=== PATIENT | female | born 1950 | race Caucasian/White ===

== ENCOUNTER → 2017-01-29 | Outpatient (CLI) | payer MEDICARE ==
[~2017-01-29] MED LIST: ASPI-621 PO; ATOR10TA9 PO; BENA20TA2 PO; FLAX1CAP6 PO; HYDR-3245 PO; HYDR12.58 PO; IBUP1TAB11 PO; MELO15TA24 PO; METF850T2 PO; MULT-516 PO; OMEP-110 PO; PARO20TA4 PO; TRAM50TA2 PO; UBID100C19 PO
[2017-01-29 11:51] LABS: HEMOGLOBIN 15.1 g/dL (11.7-16.4); WHITE BLOOD COUNT 9.6 x10^3/uL (3.4-10)
[2017-01-29 11:55] LABS: PATH.CAST-FLAG NOT PRESENT; SPERM-FLAG NOT PRESENT; SRC-FLAG NOT PRESENT; XTAL-FLAG NOT PRESENT; YLC-FLAG NOT PRESENT
[2017-01-29 12:03] LABS: BLOOD UREA NITROGEN 16 mg/dL (7-18)
[2017-01-29 12:07] LABS: ASPARTATE AMINO TRANSFERASE 23 U/L (15-37)
== END | disposition home or self-care (01) ==
LOC: STAR 10:32
PROVIDERS: ATTEND Orthopaedic Surgery
DX: Z01.818 Encounter for other preprocedural examination (principal); M17.12 Unilateral primary osteoarthritis, left knee; K21.9 Gastro-esophageal reflux disease without esophagitis; Z79.899 Other long term (current) drug therapy
CPT/HCPCS: 36415; 80053; 81001; 85025; 87081; 87086; 93005